=== PATIENT | female | born 1990 | race Two or more races ===

== ENCOUNTER 2020-04-12 13:15 | Emergency (ER) | payer MEDICAID, OTHER ==
[~2020-04-12] VITALS: Ht 172.7 cm; Wt 68.0 kg
[2020-04-12] MEDS ORDERED: SODIUM CHLORIDE 0.9% 1,000 ML IV ONE ×2 (13:45)
[2020-04-12] MEDS ORDERED: LORazepam 2MG/ML-1ML VIAL IV ONE (13:45)
[2020-04-12 13:59] LABS: Basophils # (auto) 0 10 ^3/uL (0-0.2); Eosinophils # (auto) 0.2 10 ^3/uL (0-0.8); Monocytes # (auto) 0.4 10 ^3/uL (0-1.3); White Blood Cell 5.8 10^3/uL (4.4-10.8)
[2020-04-12 14:01] LABS: Basophils % (auto) 0.6 % (0.0-2.0); Eosinophils % (auto) 2.9 % (0.0-7.0); Hematocrit 51.9 % (36.0-46.0); Hemoglobin 17.9 g/dL (12.2-16.2); Lymphocytes # (auto) 1.4 10 ^3/uL (0.4-5.4); Lymphocytes % (auto) 23.6 % (10.0-50.0); Mean Corpuscular Hemoglobin 31.8 pg (28.0-32.0); Mean Corpuscular Hgb Conc. 34.5 g/dL (32.0-36.0); Monocytes % (auto) 6.7 % (0.0-12.0); Neutrophils # (auto) 3.8 10 ^3/uL (1.6-8.6); Neutrophils % (auto) 66.2 % (37.0-80.0); Nucleated Red Blood Cells % 0.1 %; Platelet Count (auto) 201 10^3/uL (140-450); Red Blood Cells 5.64 10^6/uL (4.0-5.20); Red Cell Distribution Width 13.6 % (11.8-14.3)
[2020-04-12 14:19] LABS: Anion Gap 6 (5-15); Blood Urea Nitrogen 8 mg/dL (7-18); Calcium 9.7 mg/dL (8.5-10.1); Carbon Dioxide 27 mmol/L (21-32); Chloride 103 mmol/L (98-107); Glucose 88 mg/dL (74-106); Sodium 136 mmol/L (136-145)
[2020-04-12 14:24] LABS: Alanine Aminotransferase 36 U/L (13-56); Alkaline Phosphatase 70 U/L (45-117); Aspartate Aminotransferase 19 U/L (15-37); BUN/Creatinine Ratio 9.8; Bilirubin, Total 0.3 mg/dL (0.2-1.0); GFR African American 105 mL/min; GFR Non-African American 87 mL/min; Total Protein 9.4 g/dL (6.4-8.2)
[2020-04-12 15:14] VITALS: BP 131/71
[2020-04-12] MEDS ORDERED: cefTRIAXone 1GM/50ML D5W 50 ML IV ONE (15:15)
[2020-04-12] MEDS ORDERED: LAMO150T26 PO ×2 (23:17)
[2020-04-12] MEDS ORDERED: BACL10TA PO (23:17)
[2020-04-12] MEDS ORDERED: FOLI1TAB6 PO (23:17)
[2020-04-12] MEDS ORDERED: OXCA600T3 PO (23:17)
[2020-04-12] MEDS ORDERED: ESCI10TA53 PO (23:17)
[2020-04-12] MEDS ORDERED: CALC1CHW65 PO (23:17)
== END 2020-04-12 15:52 | disposition home or self-care (01) ==
LOC: ER 13:15 → EDBD 13:15 → ER 15:52
DX: R56.9 Unspecified convulsions (principal); J18.9 Pneumonia, unspecified organism; E86.0 Dehydration
CPT/HCPCS: 36415; 70450; 71045; 80053; 84484; 85025; 96365; 96367; 96375; 99285; J0696; J1953; J2060; J7030; J7060

== ENCOUNTER 2020-04-12 17:16 | Inpatient (IN) | payer MEDICAID ==
[~2020-04-12] VITALS: Ht 167.6 cm; Wt 74.6 kg
[2020-04-12] MEDS ORDERED: SODIUM CHLORIDE 0.9% 1,000 ML IV ONE ×2 (18:00)
[2020-04-12] MEDS ORDERED: LORazepam 2MG/ML-1ML VIAL IV ONE (18:00)
--- NOTE | 2020-04-12 21:30 | NUR ---
PATIENT MOVED TO 292B
--- NOTE | 2020-04-12 21:49 | NUR ---
[facility] SWAB SENT TO LAB
[2020-04-12 22:00] VITALS: BP 122/78
[2020-04-12] MEDS ORDERED: CALC1CHW65 PO (23:17)
[2020-04-12] MEDS ORDERED: OXCA600T3 PO (23:17)
[2020-04-12] MEDS ORDERED: BACL10TA PO (23:17)
[2020-04-12] MEDS ORDERED: FOLI1TAB6 PO (23:17)
[2020-04-12] MEDS ORDERED: ESCI10TA53 PO (23:17)
[2020-04-12] MEDS ORDERED: LAMO150T26 PO ×2 (23:17)
--- NOTE | 2020-04-12 23:17 | NUR ---
HOSPITALIST PAGED HOSPITALIST PAGED TO REVIEW PATIENT HOME MEDS. MOTHER STATES PATIENT NEEDS TO TAKE MEDICATIONS ON SCHEDULE TO PREVENT SEIZURE ACTIVITY. MOTHER IS AT BEDSIDE. MOTHER STATES PATIENT IS DIAGNOSED WITH AND EPILEPTIC SEIZURES AND CEREBRAL PALSY.
[2020-04-12] MEDS ORDERED: lamoTRIgine 100 MG TAB PO ONE (23:30)
[2020-04-13 00:38] VITALS: BP 122/83
[2020-04-13 05:00] VITALS: BP 90/56
[2020-04-13] MEDS: OXcarbazepine 300 MG TAB PO SCH ×3 (06:21→22:35)
--- NOTE | 2020-04-13 07:15 | NUR ---
CLOSING NOTE-NOC SHIFT ENDORSED PATIENT CARE TO DAY SHIFT NURSE MANUEL MINER. PATIENT IS COMFORTABLE IN BED. MOTHER CONTINUES TO BE AT BEDSIDE WITH PATIENT. 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
[2020-04-13] MEDS: LORazepam 2MG/ML-1ML VIAL IV PRN ×7 (08:35→21:35)
[2020-04-13 09:00] VITALS: BP 95/58
[2020-04-13] MEDS: BACLOFEN 10 MG TAB PO SCH ×2 (09:02→22:35)
[2020-04-13] MEDS: FOLIC ACID 1 MG TAB PO SCH (09:02)
[2020-04-13] MEDS: CALCIUM W/VIT D (600MG/400IU) TAB PO SCH (09:04)
[2020-04-13] MEDS: lamoTRIgine 100 MG TAB PO SCH ×2 (09:04→22:35)
--- NOTE | 2020-04-13 09:29 | NUR ---
PER PT MOTHER, PT HAD 2 SEIZURES, ONE LASTING 55 SECONDS, THE OTHER LASTING 5 SECONDS. MEDICATED WITH ATIVAN AT 0835. WITNESSED PT TREMBLING AT 0900, PER PT MOTHER, PT HAD ANOTHER SEIZURE BUT UNSURE OF HOW LONG IT LASTED. MEDICATED WITH ATIVAN AT 0900. PRESENTLY PT IS RESTING COMFORTABLY, SIDERAILS PADDED. MOTHER AT BEDSIDE. MONITORING CLOSELY.
--- NOTE | 2020-04-13 11:13 | NUR ---
ATIVAN GIVEN IV AT 1050. DR COVARRUBIAS OFFICE CALLED, SPOKE WITH CRIMINAL JUSTICE PROFESSOR REGARDING CONSULT. PER CRIMINAL JUSTICE PROFESSOR, DR COVARRUBIAS SHE WILL NOTIFY DR COVARRUBIAS.
[2020-04-13 12:37] VITALS: BP 117/71
--- NOTE | 2020-04-13 13:29 | NUR ---
PER RN WILL, PT MOTHER STATED WE ARE NOT DOING ANYTHING FOR HER HERE, SHE MIGHT LEAVE AND GO TO [place]. SENIA MINER TRANSLATED AND PT MOTHER STATED SHE WILL NOT SIGN THE AMA PAPER, IF SHE WANTS TO LEAVE, SHE WILL JUST LEAVE AND TAKE HER DAUGHTER. PT MOTHER EDUCATED ON LEAVING FACILITY, AND ADVISED TO LET RN KNOW, SO THE IV IS REMOVED PRIOR TO LEAVING. PT MOTHER VERBALIZED UNDERSTANDING. ALSO EDUCATED MOTHER THAT DR COVARRUBIAS IS AWARE OF CONSULT, BUT WE DO NOT KNOW THE TIME HE WILL ROUND. MONITORING PT AND MOTHER CLOSELY.
--- NOTE | 2020-04-13 16:25 | NUR ---
assessment Patient is a 30 year old female who is [place] Citizen speaking and asked for me to call her mother Pattie. Pattie informed me prior to admission patient lived home with her and needed assistance. I informed Pattie that patient has a ss consult for needing more help at home. Pattie asked for home health on discharge. Pattie informed me she is patients caregiver. Patients PCP is Dr Diallo in [place]. Patient has no DME. I informed Pattie I will continue to monitor and follow up as appropriate for any post discharge needs. Pattie verbalized understanding and agreed to discharge plan home. Addendum: 04/13/20 at 1644 by Genoveva MCINTYRE Amended: Links added.
[2020-04-13 17:00] VITALS: BP 94/64
[2020-04-13] MEDS ORDERED: SODIUM CHLORIDE 0.9% 1,000 ML IV ONE (18:45)
--- NOTE | 2020-04-13 19:15 | NUR ---
OPENING NOTE- NOC SHIFT PATIENT IS ALERT AND ORIENTED. PATIENT IS SITTING UP IN BED WATCHING TELEVISION. PATIENT'S MOTHER IS AT BEDSIDE AND STAYS WITH PATIENT DURING DAY AND NIGHT; PROFESSOR OF [employer]UDIES IS AWARE. DISCUSSED POC WITH PATIENT AND MOTHER AND INSTRUCTED PATIENT AND MOTHER TO CALL USING CALL LIGHT. CALL LIGHT WITHIN REACH, BEDSIDE TABLE WITHIN REACH. BEDSIDE RALES ARE ON FOR SEIZURE PRECAUTIONS. MOTHER IS COMPLAINING STATING THAT SHE IS UPSET BECAUSE A NEUROLOGIST HAS NOT BEEN IN TO ASSESS THE PATIENT EVEN AFTER MULTIPLE SEIZURES DURING DAY SHIFT. INFORMED MOTHER AND CHILD THAT DOCTOR COVARRUBIAS IS AWARE OF THE PATIENT STATUS AND THAT DOCTOR COVARRUBIAS STATED THAT HE WOULD BE INTO SEE PATIENT TONIGHT.
--- NOTE | 2020-04-13 19:30 | NUR ---
PATIENT PRESENTING SEIZURE ACTIVITY; MEDICATED WITH ATIVAN PER MD ORDERS. DR COVARRUBIAS PAGED. AWAITING CALL BACK. MOTHER OF PATIENT IS AT BEDSIDE. VS WNL . SAT O2 96 %. WILL CONTINUE TO MONITOR .
--- NOTE | 2020-04-13 20:25 | NUR ---
PATIENT PRESENTING WITH SEIZURE ACTIVITY. MEDICATED WITH ATIVAN PER MD ORDERS. VS WNL. SAT O2 97%. MOTHER AT BEDSIDE. INSTRUCTED MOTHER TO CALL USING CALL LIGHT PRN; PATIENT VERBALIZED UNDERSTANDING. HOSPITALIST WAS PAGED, AWAITING CALL BACK.
--- NOTE | 2020-04-13 21:35 | NUR ---
PATIENT PRESENTS WITH SEIZURE ACTIVITY; ATIVAN GIVEN PER MD ORDERS SEIZURES LASTING APPROX 50 SECONDS. VS WNL. SAT O2 97%. PATIENT'S MOTHER IS AT BEDSIDE. AWAITING CONSULTATION WITH DR COVARRUBIAS. DR COVARRUBIAS AND HOSPITALIST ARE AWARE OF PATIENT'S SEIZURE ACTIVITY.
[2020-04-13 22:00] VITALS: BP 116/76
--- NOTE | 2020-04-13 22:10 | NUR ---
DOCTOR COVARRUBIAS AT BEDSIDE
--- NOTE | 2020-04-14 | NUR ---
ROUNDS PATIENT IS RESTING EYES CLOSED BREATHING EVENLY. NO S/SX OF DISTRESS, SOB OR PAIN. NO S/SX OF SEIZURE ACTIVITY. PATIENT IS SNORING. CALL LIGHT WITHIN REACH. MOTHER IS AT BEDSIDE. WILL CONTINUE TO MONITOR Q1H AND PRN.
[2020-04-14 05:00] VITALS: BP 93/54
[2020-04-14] MEDS: OXcarbazepine 300 MG TAB PO SCH ×3 (06:02→21:54)
[2020-04-14 07:20] LABS: Basophils # (auto) 0.1 10 ^3/uL (0-0.2); Basophils % (auto) 0.9 % (0.0-2.0); Eosinophils # (auto) 0.3 10 ^3/uL (0-0.8); Eosinophils % (auto) 4.8 % (0.0-7.0); Hematocrit 44.4 % (36.0-46.0); Hemoglobin 15.2 g/dL (12.2-16.2); Lymphocytes # (auto) 1.7 10 ^3/uL (0.4-5.4); Lymphocytes % (auto) 25.8 % (10.0-50.0); Mean Corpuscular Hemoglobin 31.5 pg (28.0-32.0); Mean Corpuscular Hgb Conc. 34.1 g/dL (32.0-36.0); Mean Corpuscular Volume 92.4 fL (80.0-100.0); Monocytes # (auto) 0.6 10 ^3/uL (0-1.3); Monocytes % (auto) 9.4 % (0.0-12.0); Neutrophils # (auto) 3.8 10 ^3/uL (1.6-8.6); Neutrophils % (auto) 59.1 % (37.0-80.0); Nucleated Red Blood Cells % 0.1 %; Platelet Count (auto) 201 10^3/uL (140-450); Red Blood Cells 4.81 10^6/uL (4.0-5.20); Red Cell Distribution Width 13.3 % (11.8-14.3); White Blood Cell 6.5 10^3/uL (4.4-10.8)
[2020-04-14 07:40] LABS: Calcium 8.6 mg/dL (8.5-10.1); Potassium 3.5 mmol/L (3.5-5.1)
--- NOTE | 2020-04-14 07:41 | NUR ---
CLOSING NOTE- NOC SHIFT ENDORSED PATIENT CARE TO DAY SHIFT NURSE KALYN MINER. PATIENT IS COMFORTABLE IN BED. BED IS PADDED FOR SEIZURE PRECAUTIONS. BED ALARM ON. PATIENT'S MOTHER IS AT BEDSIDE.
[2020-04-14 07:42] LABS: BUN/Creatinine Ratio 14.1
--- NOTE | 2020-04-14 08:28 | NUR ---
REGARDING EPISODE OF WHOLE BODY SHAKING: PATIENT STARTED TO SHAKE WHILE EATING PER REPORTS FROM MOTHER. THIS RN ENTERED ROOM AND PATIENT WAS TURNED ON TO HER SIDE BY RN TASNEEM WHO WAS AT BEDSIDE AT THIS TIME. THIS RN ADMINISTERED ATIVAN PER EMAR. EPISODE LASTED FROM 827 UNTIL 830. PATIENT RESTING IN BED RESPIRATIONS EVEN AND UNLABORED SPO2 AT 100% ON 2LNC. PATIENT CONTINUES TO LAY ON LEFT SIDE WITH HOB ELEVATED. ASPIRATION/SEIZURE PRECAUTIONS IN PLACE. MOTHER AT BEDSIDE. WILL CONTINUE TO MONITOR.
[2020-04-14] MEDS: LORazepam 2MG/ML-1ML VIAL IV PRN ×2 (08:31→10:28)
[2020-04-14 09:00] VITALS: BP 107/65
--- NOTE | 2020-04-14 09:42 | NUR ---
0938: ATTEMPTED TO PROVIDE PATIENT WITH MEDICATIONS. PATIENT VOMITED. 0939: PATIENT PRESENTING WITH ANOTHER EPISODE OF SHAKING, PATIENT TURNED TO SIDE AND MEDICATION PROVIDED PER EMAR. PATIENT RESTING IN BED. WITH HOB ELEVATED TO HIGH FOWLERS. LUNGS CLEAR WITH OXYGEN SATURATIONS AT 97%. MOTHER AT BEDSIDE.
[2020-04-14] MEDS: FOLIC ACID 1 MG TAB PO SCH (10:09)
[2020-04-14] MEDS: lamoTRIgine 100 MG TAB PO SCH ×2 (10:10→21:53)
[2020-04-14] MEDS: BACLOFEN 10 MG TAB PO SCH (10:10)
[2020-04-14] MEDS: CITALOPRAM HYDROBR 20 MG TAB PO SCH (10:11)
[2020-04-14] MEDS: CALCIUM W/VIT D (600MG/400IU) TAB PO SCH (10:13)
[2020-04-14] MEDS ORDERED: ONDANSETRON HCL 4 MG/2 ML VIAL ONE (10:17)
--- NOTE | 2020-04-14 10:35 | NUR ---
STEFANIA COVARRUBIAS OF PATIENTS EPISODES. NO NEW ORDERS RECEIVED.
[2020-04-14] MEDS ORDERED: ONDANSETRON HCL 4 MG/2 ML VIAL IV ONE (10:45)
[2020-04-14] MEDS ORDERED: BACLOFEN 10 MG TAB PO PRN (11:00)
--- NOTE | 2020-04-14 11:00 | NUR ---
PER Cassidy COVARRUBIAS PLEASE HOLD ATIVAN AT THIS TIME.
[2020-04-14 13:00] VITALS: BP 104/65
--- NOTE | 2020-04-14 13:12 | NUR ---
Cassidy BEAULIEU AT BEDSIDE SPEAKING WITH FAMILY. MOTHER VOICING CONCERNS OF PATIENTS FATIGUE. Cassidy BEAULIEU STATING POSSIBLE DISCHARGE TOMORROW IF PATIENT REMAINS STABLE.
--- NOTE | 2020-04-14 13:43 | NUR ---
BACTERIOLOGY PROFESSOR AT BEDSIDE.
--- NOTE | 2020-04-14 13:45 | NUR ---
2nd attempt made for PT eval, pt getting EEG done. Will attempt again tomorrow.
--- NOTE | 2020-04-14 14:30 | NUR ---
EEG COMPLETED AT BEDSIDE. PRIMARY RN KALYN ZAMORANO.
--- NOTE | 2020-04-14 15:09 | NUR ---
REPORT GIVEN TO ISIDRA FRAGA. PATIENT TRANSFERED BY HOSPITAL STAFF. NO S/S OF DISTRESS NOTED AT THIS TIME.
[2020-04-14 16:50] VITALS: BP 121/73
[2020-04-14 16:52] LABS: Urine Bacteria FEW /hpf (None Seen); Urine Blood Negative /uL (Negative); Urine Mucus FEW (None Seen); Urine Specific Gravity 1.007 (1.001-1.035); Urine WBC 2 /hpf (0 - 5)
--- NOTE | 2020-04-14 19:50 | NUR ---
Opening Shift Note Assumed care of patient, resting in bed with breaths even and unlabored. Bed rails padded bilaterally, seizure precautions in place. No S/S of distress/SOB noted. Instructed on POC and to call for assist PRN. Bed is in lowest locked position with bed rails up x2 and call light is within reach of the patient.
[2020-04-14] MEDS ORDERED: cefTRIAXone 1GM/50ML D5W 50 ML IV ONE (20:00)
[2020-04-14 22:00] VITALS: BP 103/58
[2020-04-15 05:00] VITALS: BP 117/76
[2020-04-15] MEDS: OXcarbazepine 300 MG TAB PO SCH ×2 (06:11→13:51)
--- NOTE | 2020-04-15 07:15 | NUR ---
Opening Shift Note Assumed care of patient, awake and alert. Patient's mother present at bedside. No S/S of distress/SOB or pain. Instructed on POC and to call for assist PRN, will continue to monitor for changes Q1hr and PRN. Bed locked in lowest position, seizure precautions in place, call light within reach and HOB elevated at least 30 degrees.
[2020-04-15] MEDS: LORazepam 2MG/ML-1ML VIAL IV PRN (08:03)
--- NOTE | 2020-04-15 08:11 | NUR ---
Called/paged Dr. Argueta paged regarding 2 active seizures. IV ativan administered. VS- BP109/74, HR 108, T 98.7, RR 20, O2 96%. Waiting for call back. Continue care.
--- NOTE | 2020-04-15 08:30 | NUR ---
returned call Dr. Argueta returned call, updated on patient status and reason for call. No new orders at this time. Continue care.
[2020-04-15 09:00] VITALS: BP 118/68
[2020-04-15] MEDS ORDERED: cefTRIAXone 1GM/50ML D5W 50 ML IV SCH (09:00)
[2020-04-15] MEDS: CITALOPRAM HYDROBR 20 MG TAB PO SCH (09:27)
[2020-04-15] MEDS: lamoTRIgine 100 MG TAB PO SCH (09:27)
[2020-04-15] MEDS: CALCIUM W/VIT D (600MG/400IU) TAB PO SCH (09:27)
[2020-04-15] MEDS: FOLIC ACID 1 MG TAB PO SCH (09:28)
[2020-04-15 13:00] VITALS: BP 103/64
--- NOTE | 2020-04-15 13:00 | NUR ---
MD ROUNDS DR BEAULIEU AT BEDSIDE. INSTRUCTED TO FIND OUT RESULTS OF URINE CULTURE AND EEG. CONTINUE CARE.
[2020-04-15] MEDS ORDERED: CIPR-173 PO (13:17)
[2020-04-15 16:37] VITALS: BP 90/60
[2020-04-15 17:00] VITALS: BP 90/60
--- NOTE | 2020-04-15 19:29 | NUR ---
ENDORSED CARE TO NOC SHIFT RN
--- NOTE | 2020-04-15 22:15 | NUR ---
Discharge instructions given as ordered. Encourage to follow up with PMD as instructed. All questions and concerns addressed. Patient verbalized understanding. IV removed with catheter intact, pressure dressing applied. Patient taken to vehicle via wheelchair with all personal belongings, accompanied by staff and family member. No distress noted at time of departure.
== END 2020-04-15 22:15 | disposition home or self-care (01) | DRG 53 ==
LOC: EDBD 17:16 → ER 17:16 → WEST WING 17:17 → CENTRAL 04-14 15:00
PROVIDERS: ADMIT Nurse Practitioner Acute Care; ATTEND Internal Medicine Nephrology
DX: G40.909 Epilepsy, unspecified, not intractable, without status epilepticus (principal); N39.0 Urinary tract infection, site not specified; G93.89 Other specified disorders of brain; E86.0 Dehydration; G81.94 Hemiplegia, unspecified affecting left nondominant side; Z87.820 Personal history of traumatic brain injury; Z87.440 Personal history of urinary (tract) infections
CPT/HCPCS: 36415; 71045; 80048; 81001; 82962; 85025; 87040; 87081; 87086; 95819; G0378; J0696; J2405